=== PATIENT | male | born 1995 | race Caucasian/White ===

== ENCOUNTER 2017-03-13 21:00 | Emergency (ER) | payer OTHER ==
[~2017-03-13] VITALS: Ht 177.8 cm; Wt 65.8 kg
[2017-03-13 21:00] VITALS: Ht 177.8 cm; Wt 65.8 kg
[~2017-03-13 21:00] MED LIST: ACET-785; ARIP2TAB3; IBUP200T52; LISD70CA
--- OUTSIDE RECORDS SUMMARY | 2017-03-13 21:05 | XMS REPORT | Referral Summary ---
Author Author [facility], [facility] Care Organization [facility] Address Unknown Phone Unavailable Care Team Providers Care Rotary Bar Operator Name Role Phone CathykinaRei razo Primary Care Physician [phone] Encounter VC Date(s): 07/04/15 - 07/04/15 [facility], [address] [place] [id number] Discharge Diagnosis: Viral URI Discharge Diagnosis: Acute bronchospasm Discharge Disposition: 01-Home or Self Care Attending Physician: Jb Gamino MD Admitting Physician: Jb Gamino MD Vital Signs Most recent to 1 oldest [Reference Range]: Temperature Tympanic 37.4 degC [36.6-38.1 degC] (07/04/15 4:46 PM) Peripheral Pulse 108 bpm Rate [60-100 bpm] *HI* (07/04/15 4:46 PM) Respiratory Rate 17 br/min [14-20 br/min] (07/04/15 4:46 PM) Blood Pressure 110/80 mmHg [90-140/60-90 mmHg] (07/04/15 4:46 PM) SpO2 95 % (07/04/15 4:46 PM) Problem List Condition Effective Dates Status Health Status Informant Asthma(Confirmed) Active ADD (attention Active deficit disorder)(Confirmed) Depression(Confirmed Active ) Disease-eye(Confirme Active d) Allergies, Adverse Reactions, Alerts No Known Medication Allergies Medications meloxicam 7.5 mg oral tablet 7.5 mg 1 tabs, Oral, BID, Pain, # 60 tabs, 0 Refill(s), Pharmacy: [id number], 1 tabs Oral BID,PRN:Pain Start Date: 10/09/15 Status: Ordered Results No data available for this section Immunizations Vaccine Date Refusal Reason tetanus/diphth/pertuss (Tdap) adult/adol 10/09/15 tetanus/diphth/pertuss (Tdap) adult/adol1 07/24/14 Patient Refuses 1Result Comment: Employer did not want to pay for this immunization. Procedures Procedure Date Related Diagnosis Body Site Procedure-reset lower jaw Social History Social History Type Response Smoking Status Former smoker; Type: Cigarettes Assessment and Plan Extracted from: Title: Office Visit Note Author: Jb Gamino MD Date: 07/04/15 Assessment/Plan Acute bronchospasm Breathing treatment given today. Prednisone ordered. Encouraged to stop smoking. Follow-up if not improving. Ordered: Office Visit Level 3 Est 13307 Viral URI Symptomatic treatment. If fever worsens or symptoms progress or persist follow-up. Ordered: Office Visit Level 3 Est 34888
--- OUTSIDE RECORDS SUMMARY | 2017-03-13 21:05 | XMS REPORT | Referral Summary ---
Author Author [facility], [facility] Care Organization [facility] Address Unknown Phone Unavailable Care Team Providers Care Director Prison Name Role Phone Rei Silva Primary Care Physician [phone] Encounter VC Date(s): 09/12/15 - 09/12/15 [facility], [address] [place] [email or web address] Discharge Diagnosis: Pain in tooth Discharge Disposition: 01-Home or Self Care Attending Physician: Ranjan Sheehan PA-C Admitting Physician: Ranjan Sheehan PA-C Vital Signs Most recent to 1 oldest [Reference Range]: Temperature Tympanic 36.3 degC [36.6-38.1 degC] *LOW* (09/12/15 3:37 PM) Apical Heart Rate 76 bpm [60-100 bpm] (09/12/15 3:37 PM) Blood Pressure 118/74 mmHg [90-140/60-90 mmHg] (09/12/15 3:37 PM) SpO2 98 % (09/12/15 3:37 PM) Problem List Condition Effective Dates Status Health Status Informant Asthma(Confirmed) Active ADD (attention Active deficit disorder)(Confirmed) Depression(Confirmed Active ) Disease-eye(Confirme Active d) Allergies, Adverse Reactions, Alerts No Known Medication Allergies Medications Keflex 500 mg oral capsule 500 mg 1 caps, Oral, q8hr, X 7 days, # 21 caps, 0 Refill(s), Pharmacy: [id number], 1 caps Oral q8hr,x7 days Start Date: 09/12/15 Stop Date: 09/19/15 Status: Ordered Results No data available for this section Immunizations Vaccine Date Refusal Reason tetanus/diphth/pertuss (Tdap) adult/adol1 07/24/14 Patient Refuses 1Result Comment: Employer did not want to pay for this immunization. Procedures Procedure Date Related Diagnosis Body Site Procedure-reset lower jaw Social History Social History Type Response Smoking Status Never smoker Assessment and Plan Extracted from: Title: tooth pain Author: Ranjan Sheehan PA-C Date: 09/12/15 Assessment/Plan Pain in tooth Recommended finding a dentistas soon as possible. Take antibiotics as directed. Continue usingExcedrinas needed for pain;he declined Toradol injection Orders: cephalexin, 500 mg 1 caps, Oral, q8hr, X 7 days, # 21 caps, 0 Refill(s ), Pharmacy: [id number], 1 caps Oral q8hr,x7 days
--- OUTSIDE RECORDS SUMMARY | 2017-03-13 21:05 | XMS REPORT | Referral Summary ---
Author Author [facility], Family Medicine Organization [facility] Address Unknown Phone Unavailable Care Team Providers Care Sewing Machine Adjuster Name Role Phone Rei Silva Primary Care Physician [phone] Encounter VC Date(s): 08/04/16 - 08/04/16 [facility], [address] [place] [id number] Discharge Diagnosis: Depression Discharge Diagnosis: ADD (attention deficit disorder) Discharge Diagnosis: Asthma Discharge Disposition: 01-Home or Self Care Attending Physician: Rafita Silva MD Admitting Physician: Rafita Silva MD Vital Signs Most recent to 1 oldest [Reference Range]: Blood Pressure 120/80 mmHg [90-140/60-90 mmHg] (08/04/16 3:39 PM) Problem List Condition Effective Dates Status Health Status Informant Asthma(Confirmed) Active ADD (attention Active deficit disorder)(Confirmed) Depression(Confirmed Active ) Disease-eye(Confirme Active d) Allergies, Adverse Reactions, Alerts No Known Medication Allergies Medications Vyvanse 60 mg oral capsule 60 mg 1 caps, Oral, qAM, [facility], MUST LAST 30 DAYS Pt needs appointment for more refills, # 30 caps, 0 Refill(s) Start Date: 07/05/16 Status: Ordered Results No data available for this section Immunizations Vaccine Date Refusal Reason tetanus/diphth/pertuss (Tdap) adult/adol 10/09/15 tetanus/diphth/pertuss (Tdap) adult/adol1 07/24/14 Patient Refuses 1Result Comment: Employer did not want to pay for this immunization. Procedures Procedure Date Related Diagnosis Body Site Procedure-reset lower jaw Social History Social History Type Response Smoking Status Former smoker; Type: Cigarettes Assessment and Plan Extracted from: Title: Ambulatory Patient Education Author: Rafita Silva MD Date: Family Medicine Asthma, Adult Asthma is a recurring condition in which the airways tighten and narrow. Asthma can make it difficult to breathe. It can cause coughing, wheezing, and shortness of breath. Asthma episodes, also called asthma attacks, range from minor to life-threatening. Asthma cannot be cured, but medicines and lifestyle changes can help control it. CAUSES Asthma is believed to be caused by inherited (genetic) and environmental factors , but its exact cause is unknown. Asthma may be triggered by allergens, lung infections, or irritants in the air. Asthma triggers are different for each person. Common triggers include: Animal dander. Dust mites. Cockroaches. Pollen from trees or grass. Mold. Smoke. Air pollutants such as dust, household law enforcement instructor, hair sprays, aerosol sprays, paint fumes, strong chemicals, or strong odors. Cold air, weather changes, and winds (which increase molds and pollens in the air). Strong emotional expressions such as crying or laughing hard. Stress. Certain medicines (such as aspirin) or types of drugs (such as beta- blockers). Sulfites in foods and drinks. Foods and drinks that may contain sulfites include dried fruit, potato chips, and sparkling grape juice. Infections or inflammatory conditions such as the flu, a cold, or an inflammation of the nasal membranes (rhinitis). Gastroesophageal reflux disease (GERD). Exercise or strenuous activity. SYMPTOMS Symptoms may occur immediately after asthma is triggered or many hours later. Symptoms include: Wheezing. Excessive nighttime or valve grinder coughing. Frequent or severe coughing with a common cold. Chest tightness. Shortness of breath. DIAGNOSIS The diagnosis of asthma is made by a review of your medical history and a physical exam. Tests may also be performed. These may include: Lung function studies. These tests show how much air you breathe in and out. Allergy tests. Imaging tests such as X-rays. TREATMENT Asthma cannot be cured, but it can usually be controlled. Treatment involves identifying and avoiding your asthma triggers. It also involves medicines. There are 2 classes of medicine used for asthma treatment: Controller medicines. These prevent asthma symptoms from occurring. They are usually taken every day. Reliever or rescue medicines. These quickly relieve asthma symptoms. They are used as needed and provide short-term relief. Your health care provider will help you create an asthma action plan. An asthma action plan is a written plan for managing and treating your asthma attacks. It includes a list of your asthma triggers and how they may be avoided. It also includes information on when medicines should be taken and when their dosage should be changed. An action plan may also involve the use of a device called a peak flow meter. A peak flow meter measures how well the lungs are working. It helps you monitor your condition. HOME CARE INSTRUCTIONS Take medicines only as directed by your health care provider. Speak with your health care provider if you have questions about how or when to take the medicines. Use a peak flow meter as directed by your health care provider. Record and keep track of readings. Understand and use the action plan to help minimize or stop an asthma attack without needing to seek medical care. Control your home environment in the following ways to help prevent asthma attacks: Do not smoke. Avoid being exposed to secondhand smoke. Change your heating and air conditioning filter regularly. Limit your use of fireplaces and wood stoves. Get rid of pests (such as roaches and mice) and their droppings. Throw away plants if you see mold on them. Clean your floors and dust regularly. Use unscented cleaning products. Try to have someone else vacuum for you regularly. Stay out of rooms while they are being vacuumed and for a short while afterward. If you vacuum, use a dust mask from a hardware store, a double-layered or microfilter vacuum equipment cleaner bag, or a vacuum equipment cleaner with a HEPA filter. Replace carpet with wood, tile, or vinyl maribel. Carpet can trap dander and dust. Use allergy-proof pillows, mattress covers, and box spring covers. Wash bed sheets and blankets every week in hot water and dry them in a dryer. Use blankets that are made of polyester or cotton. Clean bathrooms and francois with bleach. If possible, have someone repaint the call in these rooms with mold-resistant paint. Keep out of the rooms that are being cleaned and painted. Wash hands frequently. SEEK MEDICAL CARE IF: You have wheezing, shortness of breath, or a cough even if taking medicine to prevent attacks. The colored mucus you cough up (sputum) is thicker than usual. Your sputum changes from clear or white to yellow, green, vera, or bloody. You have any problems that may be related to the medicines you are taking (such as a rash, itching, swelling, or trouble breathing). You are using a reliever medicine more than 23 times per week. Your peak flow is still at 5079% of your personal best after following your action plan for 1 hour. You have a fever. SEEK IMMEDIATE MEDICAL CARE IF: You seem to be getting worse and are unresponsive to treatment during an asthma attack. You are short of breath even at rest. You get short of breath when doing very little physical activity. You have difficulty eating, drinking, or talking due to asthma symptoms. You develop chest pain. You develop a fast heartbeat. You have a bluish color to your lips or fingernails. You are light-headed, dizzy, or faint. Your peak flow is less than 50% of your personal best. MAKE SURE YOU: Understand these instructions. Will watch your condition. Will get help right away if you are not doing well or get worse. This information is not intended to replace advice given to you by your health care provider. Make sure you discuss any questions you have with your health care provider. Document Released: 10/24/2006 Document Revised: 11/14/2015 Document Reviewed: ExitCare Patient Information 2016 [email or web address]. No follow up information was provided. Extracted from: Title: Office Visit Note Author: Rafita Silva MD Date: 08/04/16 Assessment/Plan ADD (attention deficit disorder) This issue was reviewed, appears stable, and current therapy continued except as mentioned. Appropriate lab was reviewed from the most recent appropriate entry and lab was ordered if needed in the cpoe /nursing orders, and follow up recommended generally in 90 days and no later then six months. May refill monthly per contract. A work/school note was offered and deferred by the patient. Asthma The patient's issue is nearly or completely resolved. There is no further issues or testing desired by them at this time. Depression The patient's issue is nearly or completely resolved. There is no further issues or testing desired by them at this time. Stable without meds per him.
--- OUTSIDE RECORDS SUMMARY | 2017-03-13 21:05 | XMS REPORT | Referral Summary ---
Author Author [facility], Family Medicine Organization [facility], [facility] Address Unknown Phone Unavailable Care Team Providers Care University Administrator Name Role Phone Rei Silva Primary Care Physician [phone] Encounter VC Date(s): 05/26/15 - 05/26/15 [facility], [address] [place] [address] Discharge Disposition: 01-Home or Self Care Attending Physician: Rafita Silva MD Admitting Physician: Rafita Silva MD Vital Signs Most recent to 1 oldest [Reference Range]: Blood Pressure 120/80 mmHg [90-140/60-90 mmHg] (05/26/15 3:26 PM) Problem List Condition Effective Dates Status Health Status Informant Asthma(Confirmed) Active ADD (attention Active deficit disorder)(Confirmed) Depression(Confirmed Active ) Disease-eye(Confirme Active d) Allergies, Adverse Reactions, Alerts No Known Medication Allergies Medications meloxicam 7.5 mg oral tablet 7.5 mg 1 tabs, Oral, BID, Pain, # 60 tabs, 0 Refill(s), Pharmacy: [facility] [place], 1 tabs Oral BID,PRN:Pain Start Date: 10/09/15 [...] Author: Rafita Silva MD Date: Family Medicine Suicidal Feelings, How to Help Yourself Everyone feels sad or unhappy at times, but depressing thoughts and feelings of hopelessness can lead to thoughts of suicide. It can seem as if life is too tough to handle. If you feel as though you have reached the point where suicide is the only answer, it is time to let someone know immediately. HOW TO COPE AND PREVENT SUICIDE Let family, friends, teachers, or counselors know. Get help. Try not to isolate yourself from those who care about you. Even though you may not feel sociable, talk with someone every day. It is best if it is [id number]. Remember, they will want to help you. Eat a regularly spaced and well-balanced diet. Get plenty of rest. Avoid alcohol and drugs because they will only make you feel worse and may also lower your inhibitions. Remove them from the home. If you are thinking of taking an overdose of your prescribed medicines, give your medicines to someone who can give them to you one day at a time. If you are on antidepressants, let your caregiver know of your feelings so he or she can provide a safer medicine, if that is a concern. Remove weapons or poisons from your home. Try to stick to routines. Follow a schedule and remind yourself that you have to keep that schedule every day. Set some realistic goals and achieve them. Make a list and cross things off as you go. Accomplishments give a sense of worth. Wait until you are feeling better before doing things you find difficult or unpleasant to do. If you are able, try to start exercising. Even half-hour periods of exercise each day will make you feel better. Getting out in the sun or into nature helps you recover from depression faster. If you have a favorite place to walk, take advantage of that. Increase safe activities that have always given you pleasure. This may include playing your favorite music, reading a good book, painting a picture, or playing your favorite instrument. Do whatever takes your mind off your depression. Keep your living space well-lighted. GET HELP Contact a suicide hotline, crisis center, or local suicide prevention center for help right away. Local centers may include a hospital, clinic, community service organization, social service provider, or health department. Call your local emergency services (911 in the [place]). Call a suicide hotline: 1-392-875-WYEM ( ) in the [place]. 3-658-ARSYJZF ( ) in the [place]. in the [place] for Uzbek-speaking counselors. 1-526-631-4TTY ( ) in the [place] for TTY users. Visit the following websites for information and help: National Suicide Prevention Lifeline: www.suicidepreventionlifeline.org Hopeline: www.hopeline.[employer] [place] Foundation for Suicide Prevention: www.afsp.org For lesbian, oscar, bisexual, transgender, or questioning youth, contact The [employer] Project: 2-925-5-U-CASTILLO ( ) in the [facility]. www.thetrevorproject.org In [place], treatment resources are listed in each province with listings available under [employer] or similar titles. Another source for Crisis Centres by Province is located at http:// www.suicideprevention.ca/hq-tculmw-xkg/bdja-b-opticr-centre-now/crisis-centres Document Released: 04/29/2004 Document Revised: 01/15/2013 Document Reviewed: ExitCare Patient Information 2014 XDC. No follow up information was provided. Extracted from: Title: Office Visit Note Author: Rafita iSlva MD Date: 05/26/15 Assessment/Plan ADD (attention deficit disorder) Discussed many options. Discussed PV consult and that was declined.Trial of vyvanse 60mg po dailydown from 70. Trial for 30 dayswith next refill and appt for further adjustments or consult PV. Depression This issue is stable and appropriate refills, lab, and f/u have been discussed. Loss of weight See above. Strongly consider lab, cxr, tsh if wt loss persisting. Declined today. A work/school note was offered and deferred by the patient.
--- OUTSIDE RECORDS SUMMARY | 2017-03-13 21:05 | XMS REPORT | Continuity of Care Document ---
Author Author [facility] Organization [facility] Address Unknown Phone Unavailable Allergies Active Description Code Type Severity Reaction Onset Reported/Identified Relationship to Patient Clinical Status Yes No Known Medication Allergies NKMA N/A N/A 07/15/2014 Medications Problems Procedures Results Encounters ACCT No. Visit Date/Time Discharge Status Pt. Type Provider Facility Loc./Unit Complaint [id number] 01/04/2014 15:20:00 01/04/2014 23 :59:59 [facility] Outpatient [id number] 11/29/2013 15:46:00 11/29/2013 23 :59:59 [facility] Outpatient
--- OUTSIDE RECORDS SUMMARY | 2017-03-13 21:05 | XMS REPORT | Continuity of Care Document ---
Author Author Shira LYN, Rafita MARIE Organization Ambulatory Address [address] [place] [address] [facility] [place] [address] Phone Care Team Providers Care Quality Improvement Analyst Name Role Phone Rafita Silva PP Unavailable Payers Payer name Insurance type Covered green party ID Authorization(s) Unknown Problems Condition Effective Dates (start - stop) Clinical Status Attention deficit disorder of childhood without mention of hyperactivity - *Stable Encounter for therapeutic drug monitoring - *Routine Attention deficit disorder of childhood without mention of hyperactivity - *Chronic ATTN DEFICIT W HYPERACT - Family History Family Member Diagnosis Age At Onset Status Mother (Unknown) Alive and well (Unknown) Father (Unknown) Alive and well (Unknown) Social History Social History Element Description Quantity Unknown Allergies, Adverse Reactions, Alerts Substance Reaction Severity Status Unknown Medications Medication Instructions Dosage Effective Dates (start - stop) Status Vyvanse 20 mg capsule 1 po q am - No Longer Active Vyvanse 70 mg capsule take 1 capsule (70MG) by oral route every day in the morning 70 MG - No Longer Active Vyvanse 70 mg capsule take 1 capsule (70MG) by oral route every day in the morning 70 MG - Active Immunizations Vaccine Date Status Comments Unknown Results Test Name Date and Time Measure Units Reference Range Abnormal Flag Comments Unknown Vital Signs Date / Time: Height Weight Pulse Rate Blood Pressure Temperature /15:24:00 69.00 in 144.50 lbs 116/72 mm[Hg] 97.4 F Procedures Procedure Date Unknown Encounters Encounter Location Date Patient Visit [facility] Patient Visit [facility] Patient Visit [facility] Patient Visit Conversion Advance Directives Directive Effective Date Unknown
--- OUTSIDE RECORDS SUMMARY | 2017-03-13 21:05 | XMS REPORT | Referral Summary ---
Author Author [facility], Family Medicine Organization [facility] Address Unknown Phone Unavailable Care Team Providers Care Human Factors Advisor Lead Name Role Phone Rei Silva Primary Care Physician [phone] Encounter VC Date(s): 10/09/15 - 10/09/15 [facility], [address] [place] [id number] Discharge Disposition: 01-Home or Self Care Attending Physician: Rafita Silva MD Admitting Physician: Rafita Silva MD Vital Signs Most recent to 1 oldest [Reference Range]: Temperature Tympanic 36.6 degC [36.6-38.1 degC] (10/09/15 2:39 PM) Peripheral Pulse 99 bpm Rate [60-100 bpm] (10/09/15 2:39 PM) Blood Pressure 130/84 mmHg [90-140/60-90 mmHg] (10/09/15 2:39 PM) SpO2 98 % (10/09/15 2:39 PM) Problem List Condition Effective Dates Status Health Status Informant Asthma(Confirmed) Active ADD (attention Active deficit disorder)(Confirmed) Depression(Confirmed Active ) Disease-eye(Confirme Active d) Allergies, Adverse Reactions, Alerts No Known Medication Allergies Medications meloxicam 7.5 mg oral tablet 7.5 mg 1 tabs, Oral, BID, Pain, # 60 tabs, 0 Refill(s), Pharmacy: [id number], 1 tabs Oral BID,PRN:Pain Start Date: 10/09/15 [...] Author: Rafita Silva MD Date: Family Medicine Immunization Information for Foreign Travel Immunizations can protect you from certain diseases. Immunizations can also prevent the spread of certain infections. It is important to see your caregiver or a travel medicine specialist 46 weeks before you travel. This allows time for vaccines to take effect. It also provides enough time for you to get vaccines that must be given in a series over a period of days or weeks. Immunizations for travelers include: Routine vaccines. These vaccines are standard for the people in a country. Recommended vaccines. These vaccines are recommended before travel to some countries or regions. Required vaccines. These vaccines are necessary before travel to specific countries or regions. If it is less than 4 weeks before you leave, you should still see your caregiver. You might still benefit from vaccines or medicines. WHAT ARE THE ROUTINE VACCINES? Routine vaccines can protect you from diseases that are common in many parts of the world. Most routine vaccines are given at specific ages during your life. However, routine vaccines also include the annual flu (influenza) vaccine. You should be up to date on your routine immunizations before you travel. Your caregiver will be able to review your vaccine history and determine whether you have had all the routine vaccines. You may be advised to get extra doses or booster vaccines even if you are up to date on the routine vaccines. WHAT ARE THE RECOMMENDED VACCINES? Know your travel schedule when you visit your caregiver. The vaccines recommended before foreign travel will depend on several factors, including: The country or countries of travel. Whether you will travel to rural areas. The length of time you will be traveling. The season of the year. Your age. Your health status. Your previous immunizations. Vaccine recommendations chemical cell changer time. Your caregiver can tell you what vaccines are recommended before your trip. The annual influenza vaccine sometimes differs for the northern and southern hemispheres. Unless the annual vaccines are the same in both hemispheres, people with certain chronic medical conditions who are traveling to the other hemisphere shortly before or during the influenza season should also get the other influenza vaccine. The other influenza vaccine should be obtained either before leaving the country or shortly after arrival at the travel site. WHAT ARE THE REQUIRED VACCINES? Vaccines may be required during a current outbreak of an infectious disease in a country or region. Your caregiver will be able to tell you about any current outbreaks and required vaccines. For example, proof of yellow fever immunization is currently required for most people before traveling to certain countries in [place] and [place]. This vaccine can only be obtained at approved centers. You should get the yellow fever vaccine at least 10 days before your trip. After 10 days, most people show immunity to yellow fever. If it has been longer than 10 years since you received the yellow fever vaccine, another dose is required. If proof of immunization is incomplete or inaccurate, you could be quarantined, denied entry , or given another dose of vaccine at the travel site. If you cannot receive the yellow fever vaccine because of medical reasons, you must have a written statement from your caregiver. The statement must contain a medical reason for the lack of immunization. In such a case, your caregiver should then give you advice on how to decrease your chance of getting yellow fever. That advice should include taking precautions to avoid mosquito bites and limiting outdoor time. Other than having a medical condition or being under the age of 6 months, no other reasons will be accepted for not getting the vaccine. Proof of meningococcal immunization is required by the [facility] for any person older than 2 years who is taking part in the [facility] or [facility]. Visas for traveling to the [facility] or [facility] will not even be issued until there is proof of immunization. You should get this vaccine at least 10 days before your trip. After 10 days, most people show immunity. If it has been longer than 3 years since your last immunization, another dose is required. FOR MORE INFORMATION Centers for Disease Control and Prevention (CDC): www.cdc.gov World Health Organization (WHO): www.who.int Document Released: 10/12/2010 Document Revised: 03/10/2015 Document Reviewed: [employer] Patient Information 2015 [facility], [facility]. This information is not intended to replace advice given to you by your health care provider. Make sure you discuss any questions you have with your health care provider. No follow up information was provided. Extracted from: Title: Office Visit Note Author: Rafita Silva MD Date: 10/09/15 Assessment/Plan ADD (attention deficit disorder) This issue was reviewed, appears stable, and current therapy continued except as mentioned. Appropriate lab was reviewed from the most recent appropriate entry and lab was ordered if needed in the cpoe /nursing orders, and follow up recommended generally in 90 days and no later then six months. Depression This issue was reviewed, appears stable, and current therapy continued except as mentioned. Appropriate lab was reviewed from the most recent appropriate entry and lab was ordered if needed in the cpoe/nursing orders, and follow up recommended generally in 90 days and no later then six months. Hand pain, left Xray was done, reviewed, and negative per radiology. Tdap given. Routine wound care. A work/school note was offered and deferred by the patient. Mobic 7.5mg po bid prn. Don't hit anything. Immunization due See above. Orders: meloxicam, 7.5 mg 1 tabs, Oral, BID, Pain, # 60 tabs, 0 Refill(s), Pharmacy: [id number], 1 tabs Oral BID,PRN:Pain
--- OUTSIDE RECORDS SUMMARY | 2017-03-13 21:06 | XMS REPORT | Referral Summary ---
Author Organization Unknown Address Unknown Phone Unavailable Care Team Providers Care Agronomy Research Manager Name Role Phone Rei Silva Primary Care Physician [phone] Encounter VC Date(s): 12/19/14 - 12/19/14 [facility], [facility] [address] [place] [id number] [place] Discharge Diagnosis: Depression Discharge Diagnosis: ADD (attention deficit disorder) Discharge Diagnosis: Asthma Discharge Disposition: Home or Self Care Attending Physician: Rafita Silva MD Admitting Physician: Rafita Silva MD Vital Signs Most recent to 1 oldest [Reference Range]: Temperature Tympanic 36.3 degC [36.6-38.1 degC] *LOW* (12/19/14 4:11 PM) Blood Pressure 118/82 mmHg [90-140/60-90 mmHg] (12/19/14 4:11 PM) Problem List Condition Effective Dates Status Health Status Informant Asthma(Confirmed) Active ADD (attention Active deficit disorder)(Confirmed) Depression(Confirmed Active ) Disease-eye(Confirme Active d) Allergies, Adverse Reactions, Alerts No Known Medication Allergies Medications Vyvanse 70 mg oral capsule 1 caps, Oral, qAM, # 30 caps, 0 Refill(s) Start Date: 12/19/14 Status: Ordered Results No data available for this section Immunizations Vaccine Date Refusal Reason tetanus/diphth/pertuss (Tdap) adult/adol1 07/24/14 Patient Refuses 1Result Comment: Employer did not want to pay for this immunization. Procedures Procedure Date Related Diagnosis Body Site Procedure-reset lower jaw Social History Social History Type Response Smoking Status Never smoker Assessment and Plan Extracted from: Title: Ambulatory Patient Education Author: Rafita Silva MD Date: 10/21 Family Medicine Asthma, Adult Asthma is a condition that affects your lungs. It is characterized by swelling and narrowing of your airways as well as increased mucus production. The narrowing comes from swelling and muscle spasms inside the airways. When this happens, breathing can be difficult and you can have coughing, wheezing, and shortness of breath. Knowing more about asthma can help you manage it better. Asthma cannot be cured, but medicines and lifestyle changes can help control it. Asthma can be a minor problem for some people but if it is not controlled it can lead to a life-threatening asthma attack. Asthma can component overhaul operator time. It is important to work with your caregiver to manage your asthma symptoms. CAUSES The exact cause of asthma is unknown. Asthma is believed to be caused by inherited (genetic ) and environmental exposures. Swelling and redness ( inflammation ) of the airways occurs in asthma. This can be triggered by allergies, viral lung infections, or irritants in the air. Allergic reactions can cause you to wheeze immediately or several hours after an exposure. Asthma triggers are different for each person. It is important to pay attention and know what triggers your asthma. Common triggers for asthma attacks include: Animal dander from the skin, hair, or feathers of animals. Dust mites contained in house dust. Cockroaches. Pollen from trees or grass. Mold. Cigarette or tobacco smoke. Smoking cannot be allowed in homes of people with asthma. People with asthma should not smoke and should not be around smokers. Air pollutants such as dust, household button decorating machine operator, hair sprays, aerosol sprays, paint fumes, strong chemicals, or strong odors. Cold air or weather changes. Cold air may cause inflammation. Winds increase molds and pollens in the air. There is not one best climate for people with asthma. Strong emotions such as crying or laughing hard. Stress. Certain medicines such as aspirin or beta-blockers. Sulfites in such foods and drinks as dried fruits and wine. Infections or inflammatory conditions such as the flu, a cold, or an inflammation of the nasal membranes (rhinitis ). Gastroesophageal reflux disease (GERD). GERD is a condition where stomach acid backs up into your throat (esophagus ). Exercise or strenous activity. Proper pre-exercise medicines allow most people to participate in sports. SYMPTOMS Feeling short of breath. Chest tightness or pain. Difficulty sleeping due to coughing, wheezing, or feeling short of breath. A whistling or wheezing sound with exhalation. Coughing or wheezing that is worse when you: Have a virus (such as a cold or the flu). Are suffering from allergies. Are exposed to certain fumes or chemicals. Exercise. Signs that your asthma is probably getting worse include: More frequent and bothersome asthma signs and symptoms. Increasing difficulty breathing. This can be measured by a peak flow meter , which is a simple device used to check how well your lungs are working. An increasingly frequent need to use a quick-relief inhaler. DIAGNOSIS The diagnosis of asthma is made by review of your medical history, a physical exam, and possibly from other tests. Lung function studies may help with the diagnosis. TREATMENT Asthma cannot be cured. However, for the majority of adults, asthma can be controlled with treatment. Besides avoidance of triggers of your asthma, medicines are often required. There are 2 classes of medicine used for asthma treatment: controller medicines (reduce inflammation and symptoms) andreliever or rescue medicines (relieve asthma symptoms during acute attacks). You may require daily medicines to control your asthma. The most effective long-term controller medicines for asthma are inhaled corticosteroids (blocks inflammation ). Other long-term control medicines include: Leukotriene receptor antagonists (blocks a pathway of inflammation). Long-acting beta2-agonists (relaxes the muscles of the airways for at least 12 hours) with an inhaled corticosteroid. Cromolyn sodium or nedocromil (alters certain inflammatory cells' ability to release chemicals that cause inflammation). Immunomodulators (alters the immune system to prevent asthma symptoms). Theophylline (relaxes muscles in the airways). You may also require a short-acting beta2-agonist to relieve asthma symptoms during an acute attack. You should understand what to do during an acute attack. Inhaled medicines are effective when used properly. Read the instructions on how to use your medicines correctly and speak to your caregiver if you have questions. Follow up with your caregiver on a regular basis to make sure your asthma is well- controlled. If your asthma is not well-controlled, if you have been hospitalized for asthma, or if multiple medicines or medium to high doses of inhaled corticosteroids are needed to control your asthma, request a referral to an asthma specialist. HOME CARE INSTRUCTIONS Take medicines as directed by your caregiver. Control your home environment in the following ways to help prevent asthma attacks: Change your heating and air conditioning filter at least once a month. Place a filter or cheesecloth over your heating and air conditioning vents. Limit the use of fireplaces and wood stoves. Do not smoke. Do not stay in places where others are smoking. Get rid of pests (such as roaches and mice) and their droppings. If you see mold on a plant, throw it away. Clean your floors and dust every week. Use unscented cleaning products. Use a vacuum rug cleaner hand with a HEPA filter if possible. If vacuuming or cleaning triggers your asthma, try to find someone else to do these chores. Floors in your house should be wood, tile, or vinyl. Carpet can trap dander and dust. Use allergy-proof pillows, mattress covers, and box spring covers. Wash bedsheets and blankets every week in hot water and dry in a dryer. Use a blanket that is made of polyester or cotton with a tight nap. Do not use a dust ruffle on your bed. Clean bathrooms and francois with bleach and repaint with mold-resistant paint. Wash hands frequently. Talk to your caregiver about an action plan for managing asthma attacks. This includes the use of a peak flow meter which measures the severity of the attack and medicines that can help stop the attack. An action plan can help minimize or stop the attack without having to seek medical care. Remain calm during an asthma attack. Always have a plan prepared for seeking medical attention. This should include contacting your caregiver and in the case of a severe attack, calling your local emergency services (911 in [place] SEEK MEDICAL CARE IF: You have wheezing, shortness of breath, or a cough even if taking medicine to prevent attacks. You have thickening of sputum. Your sputum changes from clear or white to yellow, green, vera, or bloody. You have any problems that may be related to the medicines you are taking ( such as a rash, itching, swelling, or trouble breathing). You are using a reliever medicine more than 23 times per week. Your peak flow is still at 5079% of personal best after following your action plan for 1 hour. SEEK IMMEDIATE MEDICAL CARE IF: You are short of breath even at rest. You get short of breath when doing very little physical activity. You have difficulty eating, drinking, or talking due to asthma symptoms. You have chest pain or you feel that your heart is beating fast. You have a bluish color to your lips or fingernails. You are lightheaded, dizzy, or faint. You have a fever or persistent symptoms for more than 23 days. You have a fever and symptoms suddenly get worse. You seem to be getting worse and are unresponsive to treatment during an asthma attack. Your peak flow is less than 50% of personal best. MAKE SURE YOU: Understand these instructions. Will watch your condition. Will get help right away if you are not doing well or get worse. Document Released: 10/24/2006 Document Revised: 10/10/2013 Document Reviewed: [facility] Patient Information [address] [employer] [facility]. No follow up information was provided. Extracted from: Title: Office Visit Note Author: Rafita Silva MD Date: 12/19/14 Assessment/Plan ADD (attention deficit disorder) This issue is stable and appropriate refills , lab, and f/u have been discussed. Asthma This issue is stable and appropriate refills, lab, and f/u have been discussed. Depression This issue is stable and appropriate refills, lab, and f/u have been discussed. Not requiring any meds at this point. Orders: lisdexamfetamine, 1 caps, Oral, qAM, # 30 caps, 0 Refill(s)
--- OUTSIDE RECORDS SUMMARY | 2017-03-13 21:06 | XMS REPORT | Referral Summary ---
Author Author [facility] Crareon [facility], Family [facility] Organization [facility] Carreon [facility] Address Unknown Phone Unavailable Care Team Providers Care It Technical Specialist Name Role Phone Rei Silva Primary Care Physician [phone] Encounter Date(s): 12/20/16 - 12/20/16 [facility] Carreon Newton, [address] [place] [id number] Discharge Diagnosis: ADD (attention deficit disorder) Discharge Diagnosis: Noncompliance Discharge Diagnosis: Depression Discharge Disposition: 01-Home or Self Care Attending Physician: Rafita Silva MD Admitting Physician: Rafita Silva MD Vital Signs Most recent to 1 oldest [Reference Range]: Blood Pressure 120/80 mmHg [90-140/60-90 mmHg] (12/20/16 3:06 PM) Problem List Condition Effective Dates Status Health Status Informant Asthma(Confirmed) Active ADD (attention Active deficit disorder)(Confirmed) Depression(Confirmed Active ) Disease-eye(Confirme Active d) Allergies, Adverse Reactions, Alerts No Known Medication Allergies Medications Vyvanse 70 mg oral capsule 70 mg 1 caps, Oral, qAM, Must last thirty days., # 30 caps, 0 Refill(s) Start Date: 12/20/16 Status: Ordered Results No data available for this section Immunizations Given and Recorded Vaccine Date Status Refusal Reason tetanus/diphth/pertuss (Tdap) adult/adol 10/09/15 Given Not Given Vaccine Date Status Refusal Reason tetanus/diphth/pertuss (Tdap) adult/adol1 07/24/14 Not Given Patient Refuses 1Result Comment: Employer did not want to pay for this immunization. Procedures Procedure Date Related Diagnosis Body Site Procedure-reset lower jaw Social History Social History Type Response Smoking Status Former smoker; Type: Cigarettes Assessment and Plan Extracted from: Title: Ambulatory Patient Education Author: Rafita Silva MD Date: Family Medicine Depression, Adult Depression refers to feeling sad, low, down in the dumps, blue, gloomy, or empty. In general, there are two kinds of depression: 1.Normal sadness or normal grief. This kind of depression is one that we all feel from time to time after upsetting life experiences, such as the loss of a job or the ending of a relationship. This kind of depression is considered normal, is short lived, and resolves within a few days to 2 weeks. Depression experienced after the loss of a loved one (bereavement) often lasts longer than 2 weeks but normally gets better with time. 2.Clinical depression. This kind of depression lasts longer than normal sadness or normal grief or interferes with your ability to function at home, at work, and in school. It also interferes with your personal relationships. It affects almost every aspect of your life. Clinical depression is an illness. Symptoms of depression can also be caused by conditions other than those mentioned above, such as: Physical illness. Some physical illnesses, including underactive thyroid gland (hypothyroidism), severe anemia, specific types of cancer, diabetes, uncontrolled seizures, heart and lung problems, strokes, and chronic pain are commonly associated with symptoms of depression. Side effects of some prescription medicine. In some people, certain types of medicine can cause symptoms of depression. Substance abuse. Abuse of alcohol and illicit drugs can cause symptoms of depression. SYMPTOMS Symptoms of normal sadness and normal grief include the following: Feeling sad or crying for short periods of time. Not caring about anything (apathy). Difficulty sleeping or sleeping too much. No longer able to enjoy the things you used to enjoy. Desire to be by oneself all the time (social isolation). Lack of energy or motivation. Difficulty concentrating or remembering. Change in appetite or weight. Restlessness or agitation. Symptoms of clinical depression include the same symptoms of normal sadness or normal grief and also the following symptoms: Feeling sad or crying all the time. Feelings of guilt or worthlessness. Feelings of hopelessness or helplessness. Thoughts of suicide or the desire to harm yourself (suicidal ideation). Loss of touch with reality (psychotic symptoms). Seeing or hearing things that are not real (hallucinations) or having false beliefs about your life or the people around you (delusions and paranoia). DIAGNOSIS The diagnosis of clinical depression is usually based on how bad the symptoms are and how long they have lasted. Your health care provider will also ask you questions about your medical history and substance use to find out if physical illness, use of prescription medicine, or substance abuse is causing your depression. Your health care provider may also order blood tests. TREATMENT Often, normal sadness and normal grief do not require treatment. However, sometimes antidepressant medicine is given for bereavement to ease the depressive symptoms until they resolve. The treatment for clinical depression depends on how bad the symptoms are but often includes antidepressant medicine, counseling with a mental health professional, or both. Your health care provider will help to determine what treatment is best for you. Depression caused by physical illness usually goes away with appropriate medical treatment of the illness. If prescription medicine is causing depression , talk with your health care provider about stopping the medicine, decreasing the dose, or changing to another medicine. Depression caused by the abuse of alcohol or illicit drugs goes away when you stop using these substances. Some adults need professional help in order to stop drinking or using drugs. SEEK IMMEDIATE MEDICAL CARE IF: You have thoughts about hurting yourself or others. You lose touch with reality (have psychotic symptoms). You are taking medicine for depression and have a serious side effect. FOR MORE INFORMATION National [place] on Mental Illness: www.mikie.org National [place] of Mental Health: www.nimh.nih.gov This information is not intended to replace advice given to you by your health care provider. Make sure you discuss any questions you have with your health care provider. Document Released: 10/21/2001 Document Revised: 11/14/2015 Document Reviewed: [employer] Patient Education 2016 [employer] Attention Deficit Hyperactivity Disorder Attention deficit hyperactivity disorder (ADHD) is a problem with behavior issues based on the way the brain functions (neurobehavioral disorder). It is a common reason for behavior and academic problems in school. SYMPTOMS There are 3 types of ADHD. The 3 types and some of the symptoms include: Inattentive. Gets bored or distracted easily. Loses or forgets things. Forgets to hand in homework. Has trouble organizing or completing tasks. Difficulty staying on task. An inability to organize daily tasks and school work. Leaving projects, chores, or homework unfinished. Trouble paying attention or responding to details. Careless mistakes. Difficulty following directions. Often seems like is not listening. Dislikes activities that require sustained attention (like chores or homework). Hyperactive-impulsive. Feels like it is impossible to sit still or stay in a seat. Fidgeting with hands and feet. Trouble waiting turn. Talking too much or out of turn. Interruptive. Speaks or acts impulsively. Aggressive, disruptive behavior. Constantly busy or on the go; noisy. Often leaves seat when they are expected to remain seated. Often runs or climbs where it is not appropriate, or feels very restless. Combined. Has symptoms of both of the above. Often children with ADHD feel discouraged about themselves and with school. They often perform well below their abilities in school. As children get older, the excess motor activities can calm down, but the problems with paying attention and staying organized persist. Most children do not outgrow ADHD but with good treatment can learn to cope with the symptoms. DIAGNOSIS When ADHD is suspected, the diagnosis should be made by professionals trained in ADHD. This professional will collect information about the individual suspected of having ADHD. Information must be collected from various settings where the person lives, works, or attends school. Diagnosis will include: Confirming symptoms began in childhood. Ruling out other reasons for the child's behavior. The health care providers will check with the child's school and check their medical records. They will talk to teachers and parents. Behavior rating scales for the child will be filled out by those dealing with the child on a daily basis. A diagnosis is made only after all information has been considered. TREATMENT Treatment usually includes behavioral treatment, tutoring or extra support in school, and stimulant medicines. Because of the way a person's brain works with ADHD, these medicines decrease impulsivity and hyperactivity and increase attention. This is different than how they would work in a person who does not have ADHD. Other medicines used include antidepressants and certain blood pressure medicines. Most experts agree that treatment for ADHD should address all aspects of the person's functioning. Along with medicines, treatment should include structured classroom management at school. Parents should reward good behavior, provide constant discipline, and set limits. Tutoring should be available for the child as needed. ADHD is a lifelong condition. If untreated, the disorder can have long-term serious effects into adolescence and adulthood. HOME CARE INSTRUCTIONS Often with ADHD there is a lot of frustration among family members dealing with the condition. Blame and anger are also feelings that are common. In many cases, because the problem affects the family as a whole, the entire family may need help. A therapist can help the family find better ways to handle the disruptive behaviors of the person with ADHD and promote change. If the person with ADHD is young, most of the therapist's work is with the parents. Parents will learn techniques for coping with and improving their child 's behavior. Sometimes only the child with the ADHD needs counseling. Your health care providers can help you make these decisions. Children with ADHD may need help learning how to organize. Some helpful tips include: Keep routines the same every day from wake-up time to bedtime. Schedule all activities, including homework and playtime. Keep the schedule in a place where the person with ADHD will often see it. James schedule changes as far in advance as possible. Schedule outdoor and indoor recreation. Have a place for everything and keep everything in its place. This includes clothing, backpacks, and school supplies. Encourage writing down assignments and bringing home needed books. Work with your child's teachers for assistance in organizing school work. Offer your child a well-balanced diet. Breakfast that includes a balance of whole grains, protein, and fruits or vegetables is especially important for school performance. Children should avoid drinks with caffeine including: Soft drinks. Coffee. Tea. However, some older children (adolescents) may find these drinks helpful in improving their attention. Because it can also be common for adolescents with ADHD to become addicted to caffeine, talk with your health care provider about what is a safe amount of caffeine intake for your child. Children with ADHD need consistent rules that they can understand and follow. If rules are followed, give small rewards. Children with ADHD often receive, and expect, criticism. Look for good behavior and praise it. Set realistic goals. Give clear instructions. Look for activities that can foster success and self-esteem. Make time for pleasant activities with your child. Give lots of affection. Parents are their children's greatest advocates. Learn as much as possible about ADHD. This helps you become a stronger and better advocate for your child. It also helps you educate your child's teachers and instructors if they feel inadequate in these areas. Parent support groups are often helpful. A national group with local chapters is called Children and Adults with Attention Deficit Hyperactivity Disorder (SAIMRA). SEEK MEDICAL CARE IF: Your child has repeated muscle twitches, cough, or speech outbursts. Your child has sleep problems. Your child has a marked loss of appetite. Your child develops depression. Your child has new or worsening behavioral problems. Your child develops dizziness. Your child has a racing heart. Your child has stomach pains. Your child develops headaches. SEEK IMMEDIATE MEDICAL CARE IF: Your child has been diagnosed with depression or anxiety and the symptoms seem to be getting worse. Your child has been depressed and suddenly appears to have increased energy or motivation. You are worried that your child is having a bad reaction to a medication he or she is taking for ADHD. This information is not intended to replace advice given to you by your health care provider. Make sure you discuss any questions you have with your health care provider. Document Released: 10/14/2003 Document Revised: 10/29/2014 Document Reviewed: [employer] Patient Education 2016 [employer] No follow up information was provided. Extracted from: Title: Office Visit Note Author: Rafita Silva MD Date: 12/20/16 Assessment/Plan ADD (attention deficit disorder) Medication contract reviewed. If there is any further misuse of the medication his case will be sent to for a recommendation of restriction. We discussed several options for treatment for this condition. The patient declined any changes or other treatments at this time. Consult at discussed and declined. Vyvanse 70mg po daily ONCE per day number 30 pills every 30 days. No furtherproblems or misuse will be tolerated. Depression This issue was reviewed, appears stable, and current therapy continued except as mentioned. Appropriate lab was reviewed from the most recent appropriate entry and lab was ordered if needed in the cpoe/nursing orders, and follow up recommended generally in 90 days and no later then six months. Mood stable. No SIs reported. Noncompliance See above. Dismissal for further issues. A work/school note was offered and deferred by the patient. Addendum by 45 minutes were utilized in care and coordination for this patient. Greater then 50% Shira, of the time was used for counseling and/or coordination of the patients care. Rafita Minaya MD on December 20, 2016 15:35:44 CONCIERGE RECEPTIONIST
--- OUTSIDE RECORDS SUMMARY | 2017-03-13 21:06 | XMS REPORT | Referral Summary ---
Author Organization Unknown Address Unknown Phone Unavailable Care Team Providers Care Sales Research Analyst Name Role Phone Rei Silva Primary Care Physician [phone] Encounter VC Date(s): 01/13/15 - 01/13/15 [facility]ki [facility] [place], [address] [place] [id number] Discharge Diagnosis: ADD (attention deficit disorder) Discharge Diagnosis: Acute headache Discharge Disposition: Home or Self Care Attending Physician: Morgan Davidson MD Admitting Physician: Morgan Davidson MD Referring Physician: Rafita Silva MD Vital Signs Most recent to 1 oldest [Reference Range]: Temperature Tympanic 36.5 degC [36.6-38.1 degC] *LOW* (01/13/15 7:07 PM) Apical Heart Rate 102 bpm [60-100 bpm] *HI* (01/13/15 7:07 PM) Blood Pressure 136/74 mmHg [90-140/60-90 mmHg] (01/13/15 7:07 PM) Most recent to 1 oldest [Reference Range]: SpO2 99 % (01/13/15 7:07 PM) Problem List Condition Effective Dates Status [...] Extracted from: Title: Ambulatory Patient Education Author: Morgan Davidson MD Date: 01/13 Family Medicine Migraine Headache A migraine headache is an intense, throbbing pain on one or both sides of your head. A migraine can last for 30 minutes to several hours. CAUSES The exact cause of a migraine headache is not always known. However, a migraine may be caused when nerves in the brain become irritated and release chemicals that cause inflammation. This causes pain. SYMPTOMS Pain on one or both sides of your head. Pulsating or throbbing pain. Severe pain that prevents daily activities. Pain that is aggravated by any physical activity. Nausea, vomiting, or both. Dizziness. Pain with exposure to bright lights, loud noises, or activity. General sensitivity to bright lights, loud noises, or smells. Before you get a migraine, you may get warning signs that a migraine is coming ( aura ). An aura may include: Seeing flashing lights. Seeing bright spots, halos, or zig-zag lines. Having tunnel vision or blurred vision. Having feelings of numbness or tingling. Having trouble talking. Having muscle weakness. MIGRAINE TRIGGERS Alcohol. Smoking. Stress. Menstruation. Aged cheeses. Foods or drinks that contain nitrates, glutamate, aspartame, or tyramine. Lack of sleep. Chocolate. Caffeine. Hunger. Physical exertion. Fatigue. Medicines used to treat chest pain (nitroglycerine ), control pills, estrogen, and some blood pressure medicines. DIAGNOSIS A migraine headache is often diagnosed based on: Symptoms. Physical examination. A CT scan or MRI of your head. TREATMENT Medicines may be given for pain and nausea. Medicines can also be given to help prevent recurrent migraines. HOME CARE INSTRUCTIONS Only take [id number] or prescription medicines for pain or discomfort as directed by your caregiver. The use of long-term narcotics is not recommended. Lie down in a dark, quiet room when you have a migraine. Keep a journal to find out what may trigger your migraine headaches. For example, write down: What you eat and drink. How much sleep you get. Any change to your diet or medicines. Limit alcohol consumption. Quit smoking if you smoke. Get 7 to 9 hours of sleep, or as recommended by your caregiver. Limit stress. Keep lights dim if bright lights bother you and make your migraines worse. SEEK IMMEDIATE MEDICAL CARE IF: Your migraine becomes severe. You have a fever. You have a stiff neck. You have vision loss. You have muscular weakness or loss of muscle control. You start losing your balance or have trouble walking. You feel faint or pass out. You have severe symptoms that are different from your first symptoms. MAKE SURE YOU: Understand these instructions. Will watch your condition. Will get help right away if you are not doing well or get worse. Document Released: 10/24/2006 Document Revised: 01/15/2013 Document Reviewed: [facility] Patient Information 2014 [employer]. Follow Up With: Where: When: Rafita Silva Comments: Extracted from: Title: Office Visit Note Author: Morgan Davidson MD Date: 01/13/15 Assessment/Plan Acute headache At this time his neurologic exam is stable. He reports that he does not have headache while he is in the immediate care tonight. He was advised that if he has persistent unilateral headaches of increasing severity that he should be considered for CT scan during. He was advised to discuss this with his PCPs office tomorrow. Ordered: Office Visit Level 4 Est 21309 ADD (attention deficit disorder) He will continue his same medication. Ordered: Office Visit Level 4 Est 19930
--- OUTSIDE RECORDS SUMMARY | 2017-03-13 21:06 | XMS REPORT | Referral Summary ---
Author Author [facility] Carreon [facility], [facility] Organization [facility]mediate [facility] [place] Address Unknown Phone Unavailable Care Team Providers Care Microsoft Net Developer Name Role Phone Rei Silva Primary Care Physician [phone] Encounter VC Date(s): 06/18/15 - 06/18/15 [facility] Carreon Newton, [facility] [address] [place] [address] [place] [id number] Discharge Diagnosis: Acute Bacterial Tonsillitis Discharge Diagnosis: Lower back pain Discharge Disposition: 01-Home or Self Care Attending Physician: Kelechi Mustafa DO Admitting Physician: Daniela Erickson APRN Vital Signs Most recent to 1 oldest [Reference Range]: Temperature Tympanic 36.2 degC [36.6-38.1 degC] *LOW* (06/18/15 5:01 PM) Peripheral Pulse 70 bpm Rate [60-100 bpm] (06/18/15 5:01 PM) Blood Pressure 128/70 mmHg [90-140/60-90 mmHg] (06/18/15 5:01 PM) SpO2 98 % (06/18/15 5:01 PM) Problem List Condition Effective Dates Status Health Status Informant Asthma(Confirmed) Active ADD (attention Active deficit disorder)(Confirmed) Depression(Confirmed Active ) Disease-eye(Confirme Active d) Allergies, Adverse Reactions, Alerts No Known Medication Allergies Medications meloxicam 7.5 mg oral tablet 7.5 mg 1 tabs, Oral, BID, Pain, # 60 tabs, 0 Refill(s), Pharmacy: [facility] [id number], 1 tabs Oral BID,PRN:Pain Start Date: 10/09/15 [...] Extracted from: Title: Office Visit Note Author: Kelechi Mustafa DO Date: 06/18/15 Assessment/Plan Acute Bacterial Tonsillitis 1. Augmentin one tablet twice a day for 10 days. 2. Continue with ibuprofen or Tylenol for discomfort. Recommended maximizing these medications. 3. Cool drinks recommended. 4. Change toothbrush in 2 days to avoid reinfection. Ordered: amoxicillin-clavulanate, 1 tabs, Oral, q12hr, X 10 days, # 20 tabs, 0 Refill(s) , [facility] [id number] Lower back pain 1.Ibuprofen and Tylenol as above. 2. Warm compression to the lower back as needed.
--- OUTSIDE RECORDS SUMMARY | 2017-03-13 21:06 | XMS REPORT | Continuity of Care Document ---
Author Author Shira LYN, Rafita MARIE W Organization Ambulatory Address [address] [place] [address] Roxana Jordan [facility] [place] [address] Phone Care Team Providers Care Warp Knitter Name Role Phone Parker Higginbotham PP Unavailable Payers Payer name Insurance type Covered republican ID Authorization(s) Unknown Problems Condition Effective Dates [...] Effective Dates (start - stop) Status Vyvanse 70 mg capsule take 1 capsule (70MG) by oral route every day in the morning 70 MG - Active Vyvanse 20 mg capsule 1 po q am - No Longer Active Vyvanse 20 mg capsule 1 po q am - No Longer Active Immunizations Vaccine Date Status Comments Unknown Results Test Name Date and Time Measure Units Reference Range Abnormal Flag Comments Unknown Vital Signs Date / Time: Height Weight Pulse Rate Blood Pressure Temperature /15:47:00 69.00 in 146.00 lbs 120/70 mm[Hg] 98.4 F Procedures Procedure Date Unknown Encounters Encounter Location Date Patient Visit [facility] Patient Visit Conversion Advance Directives Directive Effective Date Unknown
--- NOTE | 2017-03-13 22:00 | NUR ---
STATUS PT IS BROUGHT BACK TO TRAUMA A, AMBULTORY
[2017-03-13] MEDS ORDERED: OXYC1TAB66 PO (22:21)
[2017-03-13] MEDS ORDERED: CYCL-375 PO (22:21)
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
[2017-03-13] MEDS ORDERED: CYCLOBENZAPRINE 10MG (PrePack) SENT HOME ONE (22:30)
[2017-03-13] MEDS ORDERED: OXYCODONE/APAP 5/325 (Prepack) SENT HOME ONE (22:30)
[2017-03-13 22:41] VITALS: BP 120/68; PULSE 91; RESP 18; TEMP 98; O2SAT 98
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
--- OUTSIDE RECORDS SUMMARY | 2017-03-13 23:08 | XMS REPORT | Continuity of Care Document ---
Author Author [facility] Organization [facility] Address Unknown Phone Unavailable Allergies Active Description Code Type Severity Reaction Onset Reported/Identified Relationship to Patient Clinical Status Yes No Known Medication Allergies NKMA N/A N/A 07/15/2014 Medications Problems Procedures Results Encounters ACCT No. Visit Date/Time Discharge Status Pt. Type Provider Facility Loc./Unit Complaint [id number] 01/04/2014 15:20:00 01/04/2014 23 :59:59 [facility] Outpatient [id number] 11/29/2013 15:46:00 11/29/2013 23 :59:59 [facility] Outpatient
== END 2017-03-13 22:41 | disposition home or self-care (01) ==
LOC: ED 21:00
DX: S12.200D Unspecified displaced fracture of third cervical vertebra, subsequent encounter for fracture with routine healing (principal); V87.7XXD Person injured in collision between other specified motor vehicles (traffic), subsequent encounter

== ENCOUNTER 2017-03-17 16:55 | Emergency (ER) | payer OTHER ==
[~2017-03-17] VITALS: Ht 177.8 cm; Wt 66.8 kg
[~2017-03-17 16:55] MED LIST changes: +CYCL-375 PO; +OXYC1TAB66 PO
[2017-03-17 17:00] VITALS: Ht 177.8 cm; Wt 66.8 kg
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
--- OUTSIDE RECORDS SUMMARY | 2017-03-17 17:00 | XMS REPORT | Continuity of Care Document ---
Author Author [facility] Organization [facility] Address Unknown Phone Unavailable Allergies Active Description Code Type Severity Reaction Onset Reported/Identified Relationship to Patient Clinical Status Yes No Known Medication Allergies NKMA N/A N/A 07/15/2014 Medications Problems Procedures Results Encounters ACCT No. Visit Date/Time Discharge Status Pt. Type Provider Facility Loc./Unit Complaint [id number] 01/04/2014 15:20:00 01/04/2014 23 :59:59 [facility] Outpatient [id number] 11/29/2013 15:46:00 11/29/2013 23 :59:59 [facility] Outpatient
[2017-03-17] MEDS ORDERED: HYDR-3989 PO (17:22)
[2017-03-17] MEDS ORDERED: OXYC1TAB11 PO (17:22)
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
--- OUTSIDE RECORDS SUMMARY | 2017-03-17 18:06 | XMS REPORT | Continuity of Care Document ---
Author Author [facility] Organization [facility] Address Unknown Phone Unavailable Allergies Active Description Code Type Severity Reaction Onset Reported/Identified Relationship to Patient Clinical Status Yes No Known Medication Allergies NKMA N/A N/A 07/15/2014 Medications Problems Procedures Results Encounters ACCT No. Visit Date/Time Discharge Status Pt. Type Provider Facility Loc./Unit Complaint [id number] 01/04/2014 15:20:00 01/04/2014 23 :59:59 [facility] Outpatient [id number] 11/29/2013 15:46:00 11/29/2013 23 :59:59 [facility] Outpatient
[2017-03-17] MEDS ORDERED: CYCL-375 PO (18:44)
[2017-03-17] MEDS ORDERED: NAPR500T6 PO (18:44)
[2017-03-17] MEDS ORDERED: OXYCODONE/APAP 5/325 (Prepack) SENT HOME ONE (18:45)
[2017-03-17] MEDS ORDERED: CYCLOBENZAPRINE 10 MG TABLET PO ONE (18:45)
[2017-03-17] MEDS ORDERED: CYCLOBENZAPRINE 10MG (PrePack) SENT HOME ONE (18:45)
[2017-03-17 19:10] VITALS: BP 118/76; PULSE 95; RESP 16; TEMP 97.7; O2SAT 99
== END 2017-03-17 19:10 | disposition home or self-care (01) ==
LOC: ED 16:55
DX: S12.500D Unspecified displaced fracture of sixth cervical vertebra, subsequent encounter for fracture with routine healing (principal); V89.2XXD Person injured in unspecified motor-vehicle accident, traffic, subsequent encounter